=== PATIENT | male | born 2000 | race Caucasian/White ===

== ENCOUNTER 2023-05-02 16:37 | Emergency (ER) | payer SELFPAY ==
--- NOTE | ~2023-05-02 | CT_ITS ---
EXAMINATION: CT abdomen pelvis w con DATE: 05/02/2023 20:07 INDICATION: right lower quadrant pain, possible hernia TECHNIQUE: Computed tomography (CT) of the abdomen and pelvis was performed with 100 mL Omnipaque-350 intravenous contrast. Automated exposure control and iterative reconstruction technique were employe d. The dose-length product was 452.77 mGy-cm. COMPARISON: None. FINDINGS: Lower thorax: Unremarkable Liver: Normal. Biliary/Gallbladder: Gallbladder is normal. No bile duct dilation. Pancreas: No mass or duct dilation. Spleen: Normal. Adrenals:No mass. Kidneys: No suspicious mass, obstructing stone, or hydronephrosis. GI tract: No small or large bowel dilation. Normal appendix. Mesentery/Peritoneum: No ascites, mass, or free air. Retroperitoneum: No mass. Pelvis: Pelvic organs are within normal limits. Soft Tissues: Soft tissues and body wall unremarkable. Bones: No acute osseous finding. IMPRESSION: No acute abdominopelvic process detected Reviewed, dictated and finalized at location K. COLLECTOR
[2023-05-02 16:42] VITALS: BP 171/89; PULSE 130; RESP 16; TEMP 36.5; O2SAT 100
[2023-05-02 19:39] LABS: Basophils Absolute Auto 0.1 K/mm3 (0.0-0.1); Basophils Percent Auto 0.4 % (0.2-1.2); Eosinophils Absolute Auto 0.3 K/mm3 (0-0.3); Eosinophils Percent Auto 2.3 % (0-4.4); Hemoglobin 15.5 g/dL (14.0-18.0); Immature Granulocyte Absolute 0.14 K/mm3 (0.00-0.031); Lymphocytes Absolute Auto 3.08 K/mm3 (0.9-3.2); Lymphocytes Percent Auto 22.1 % (18.3-44.2); Mean Corpuscular Hemoglobin 28.3 pg (26-34); Mean Corpuscular Volume 85.9 fl (80-100); Mean Platelet Volume 9.6 fl (7.4-10.4); Monocytes Absolute Auto 0.7 K/mm3 (0.1-0.6); Monocytes Percent Auto 5.3 % (2.6-8.5); Neutrophils Absolute Auto 9.6 K/mm3 (1.3-6.7); Neutrophils Percent Auto 68.9 % (45.5-73.1); Platelet Count Result 254 k/mm3 (150-375); Red Blood Count 5.47 M/mm3 (4.6-6.20); Red Cell Distribution Width 12.1 % (11.5-14.5)
[2023-05-02 19:49] LABS: Alanine Aminotransferase 19 U/L (6-50); Albumin Level 5.2 g/dL (3.5-5.1); Alkaline Phosphatase 72 U/L (38-126); Anion Gap 11 mmol/L (8-16); Aspartate Amino Transferase 30 U/L (17-59); Bilirubin,Total 0.7 mg/dL (0.2-1.3); Blood Urea Nitrogen 9 mg/dL (9-20); Calcium 10.1 mg/dL (8.4-10.2); Carbon Dioxide 28 mmol/L (22-30); Chloride 102 mmol/L (98-107); Estimated CRCL calculation 141 ml/min; Estimated Glomerular Filt Rate > 60; Glucose 119 mg/dL (65-110); Lipase 60 U/L (23-300); Potassium 3.2 mmol/L (3.4-5.0); Sodium 141 mmol/L (137-145)
[2023-05-02 20:18] LABS: Appearance Urine Clear (Clear); Bilirubin Urine Negative (Negative); Blood Urine Negative (Negative); Color Urine Yellow (Yellow); Glucose Urine UA Negative (Negative); Ketones Urine Negative (Negative); Leukocyte Esterase Ur Negative LEU/UL (Negative); Nitrate Urine Negative (Negative); Protein Urine Negative (Negative); Specific Grav Ur 1.018 (1.001-1.035); Urobilinogen Urine 0.2 mg/dL (<2.0)
[2023-05-02 20:24] LABS: Add Urine Microscopic? NO
--- NOTE | 2023-05-02 20:33 | ED.ABDPAIN ---
HPI - Abdominal Pain General Chief Complaint: Abdominal Pain Stated Complaint: bubble in my belly Time Seen by Provider: 05/02/23 19:13 History of Present Illness HPI narrative: patient 19-year-old gentleman who presents to emergency department with chief complaint of right lower quadrant bulging. The patient reports that he has been moving things around and lifting a lot of things notice that he has a bulging in his abdomen wall whenever he does specific activities. Patient reports that he has not had a non reducible mass reports that not had any specific trauma reports that currently he is not hurting when he is at rest. Related Data Allergies Allergy/AdvReac Type Severity Reaction Status Date / Time No Known Allergies Allergy Verified 05/02/23 19:16 Review of Systems Review of Systems: A 10 system review of systems was completed on the patient and is negative except for what is stated in the HPI. Nursing and ancillary documentation was reviewed. Exam Narrative: GENERAL: Well-appearing, well-nourished, and in no acute distress. HEAD: Normocephalic, atraumatic. EYES: PERRLA and EOMI. ENT: Nares clear, no rhinorrhea or epistaxis. Mucous membranes moist. NECK: Supple. CHEST: Clear to auscultation. No respiratory distress. HEART: Regular rate and rhythm. No murmur heard. Normal peripheral pulses. ABDOMEN: Soft, nontender, nondistended, normal active bowel sounds. EXTREMITIES: Normal range of motion. No edema. SKIN: Warm, dry, no rash. NEURO: No focal deficits. Alert and oriented x3. PSYCH: Normal mood and affect. Course Vital Signs Vital signs: Vital Signs Temperature 36.5 C 05/02/23 16:42 Pulse Rate 130 H 05/02/23 16:42 Respiratory Rate 16 05/02/23 16:42 Blood Pressure 171/89 H 05/02/23 16:42 Pulse Oximetry 100 05/02/23 16:42 Oxygen Delivery Room Air 05/02/23 16:42 Temperature 36.5 C 05/02/23 16:42 Pulse Rate 130 H 05/02/23 16:42 Respiratory Rate 16 05/02/23 16:42 Blood Pressure 171/89 H 05/02/23 16:42 Pulse Oximetry 100 05/02/23 16:42 Oxygen Delivery Room Air 05/02/23 16:42 MDM - Abdominal Pain MDM Narrative Medical decision making narrative: Differential diagnosis includes I bowel obstruction, incarcerated hernia, hernia, appendicitis, diverticulitis Lab Data 05/02/23 19:32 05/02/23 19:32 Labs: Lab Results 05/02/23 05/02/23 Range/Units 19:32 20:10 WBC 14.0 H (4.5-10.0) K/mm3 RBC 5.47 (4.6-6.20) M/mm3 Hgb 15.5 (14.0-18.0) g/dL Hct 47.0 (42.0-52.0) % MCV 85.9 (80-100) fl MCH 28.3 (26-34) pg MCHC 33.0 (32-36) g/dl RDW 12.1 (11.5-14.5) % Plt Count 254 (150-375) k/mm3 MPV 9.6 (7.4-10.4) fl Immature Gran % (Auto) 1.0 H (0-0.5) % Neut % (Auto) 68.9 (45.5-73.1) % Lymph % (Auto) 22.1 (18.3-44.2) % [place] % (Auto) 5.3 (2.6-8.5) % Eos % (Auto) 2.3 (0-4.4) % Baso % (Auto) 0.4 (0.2-1.2) % Lymph # (Auto) 3.08 (0.9-3.2) K/mm3 [place] # (Auto) 0.7 H (0.1-0.6) K/mm3 Eos # (Auto) 0.3 (0-0.3) K/mm3 Baso # (Auto) 0.1 (0.0-0.1) K/mm3 Abs Immat Gran (auto) 0.14 H (0.00-0.031) K/mm3 Absolute Neuts (auto) 9.6 H (1.3-6.7) K/mm3 Absolute Nucleated RBC 0.0 (0.0-0.012) K/mm3 Nucleated RBC % 0.0 (0.0-0.2) % Sodium 141 (137-145) mmol/L Potassium 3.2 L (3.4-5.0) mmol/L Chloride 102 (98-107) mmol/L Carbon Dioxide 28 (22-30) mmol/L Anion Gap 11 (8-16) mmol/L BUN 9 (9-20) mg/dL Creatinine 0.70 (0.7-1.3) mg/dL Estim Creat Clear Calc 141 ml/min Estimated GFR > 60 (59 - ) Glucose 119 H (65-110) mg/dL Calcium 10.1 (8.4-10.2) mg/dL Total Bilirubin 0.7 (0.2-1.3) mg/dL AST 30 (17-59) U/L ALT 19 (6-50) U/L Alkaline Phosphatase 72 (38-126) U/L Total Protein 9.0 H (6.3-8.2) g/dL Albumin 5.2 H (3.5-5.1) g/dL Lipase 60 (23-300) U/L Urine Color Yellow (Yellow) Urine Appearan
[2023-05-02 21:03] VITALS: BP 126/84; PULSE 88; RESP 15; O2SAT 99
== END 2023-05-02 21:05 | disposition home or self-care (01) ==
PROVIDERS: Emergency Provider Emergency Medicine
DX: R10.31 Right lower quadrant pain (principal)
CPT/HCPCS: 36415; 74177; 80053; 81003; 83690; 85025; 99284; Q9967

== ENCOUNTER 2023-06-11 00:41 | Day surgery (SDC) | payer OTHER, SELFPAY ==
[2023-05-29 13:22] VITALS: BMI 27.3
--- NOTE | 2023-05-29 13:57 | PC.NURSE ---
Report to the Outpatient Waiting Room, entrance under the green pavilion located off [facility], at time _0600__ on date _07/01/23 . Planned Procedure Time: __0730 . Time changes happen often and if your time is changed the preop area will call you the afternoon before. - You and your visitor will be asked to self-screen and do not enter if you have any COVID symptoms. - A mask is optional within the hospital at this time. Patients may have clear liquids (water, carbonated beverages, clear teas, apple juice) until 3 hours prior to surgery with a maximum of 20 ounces. - No food from midnight until time of surgery. Take the following medications with a SIP of water the morning of surgery: ___SERTRALINE DO NOT STOP ANY OF YOUR OTHER PRESCRIPTION MEDICATIONS PRIOR TO SURGERY ?EXCEPT THE FOLLOWING Medications to discontinue per physician NONE Date to take last dose___N/A Please no make-up, nail belgian, hairspray, perfume, deodorant, or body powder the day of surgery. No jewelry (including any body piercings) or valuables the day of surgery, leave them at home. Please take a shower or bath the night before, or the morning of, surgery with an antibacterial soap. Wear comfortable, loose fitting clothing. - Jewelry must be removed prior to entering the operating room. Rings and piercings that are not removed may be cut off. - The hospital will not accept responsibility for valuables. - Please leave all valuables, including medications, at home the day of surgery. If you are going home after surgery, a licensed tow car driver must drive you home. - NO public transportation without another adult if you receive anesthesia. - We recommend that an adult stay with you for 24 hours following discharge. - We also recommend that you do not drive, make important decision, drink alcoholic beverages, or take any drugs that were not prescribed by your health care provider for at least 24 hours after your discharge time. Follow any additional instructions given to you from your surgeon. If you or anyone in your household have experienced Covid symptoms in the past week, please notify your surgeon or the nurse liaison at the phone number below for possible testing. Telephone instructions given to _ISAUSTINVIVIAN__and asked if any additional questions and then verbalized understanding. Patient advised to call surgeon office or pre surgery nurse liaison [phone] if any additional questions.
[2023-06-11] VITALS (9 sets, daily range): BP systolic 118–162; BP diastolic 70–94; PULSE 61–108; RESP 12–20; TEMP 36.2–36.4; O2SAT 95–100
[2023-06-11] MEDS: LACTATED RINGERS 1,000 ML 30 ML IV CONT ×2 (06:25→08:50)
[2023-06-11] MEDS: KETOROLAC 15 MG/ML VIAL (*BKC) IV PUSH (06:30)
[2023-06-11] MEDS: ACETAMINOPHEN 500 MG TABLET 1000 MG PO (06:30)
--- NOTE | 2023-06-11 07:05 | P.PNAN_ITS ---
Anes - Initial Pre Proc Eval Procedure: Operation Date: 06/11/23 07:30 Proposed Procedures p Robotic Assisted Right Inguinal Hernia Repair with Mesh - Renate Noriega MD Date/Time: 06/11/23 07:05 Surgeon: Renate Noriega MD Pre Op Diagnosis: right Inguinal Hernia Patient Data Age: 22 Gender: M Height: 1.75 m Weight: 85.4 kg Last Vital Signs Temp 97.2 F L 06/11/23 06:03 Pulse 108 H 06/11/23 06:03 Resp 18 06/11/23 06:03 BP 162/94 H 06/11/23 06:03 Pulse Ox 100 06/11/23 06:03 O2 Del Method Room Air 06/11/23 06:03 Allergies Allergy/AdvReac Type Severity Reaction Status Date / Time No Known Allergies Allergy Verified 06/11/23 06:04 Home Medications Medication Instructions Recorded Confirmed Type sertraline 25 mg tablet 25 mg PO DAILY 05/29/23 06/11/23 History Laboratory Tests 06/11/23 06:26 Blood Type Pending Antibody Screen Pending Patient hx anesthesia problems: none Family hx anesthesia problems: none Results Review: All pre-operative results and documents have been reviewed as part of the pre- operative evaluation. [facility] Past Medical History Medical History (Updated 05/11/23 @ 14:44 by JOSÉ MIGUEL Rodriguez) Asthma Hypertension Family History Family History Mother Hypertension Other Cancer Social History Social History (Updated 05/09/23 @ 15:59 by Silvana Navarro MA) Years smoked: 6 Smoking status: Current some day smoker Tobacco type: e-cigarettes/vaping Alcohol intake: never Alcohol use details: socially Substance use: never Substance use type: does not use Living arrangements: with family Occupation/Education: occupation Spiritual care concerns: No Anes - Eval Final PreProcedure Day of Procedure 06/11/23 07:05 Patient weight: normal Heart: regular rate and rhythm Lungs: clear to auscultation Airway: Mallampati scale class II Neurological: alert and oriented Last oral intake: >/= 8 hours ASA classification: II Emergent: no Anesthetic plan: proceed Anesthesia type and monitoring: general ETT and standard monitoring Results Review: All pre-operative results and documents have been reviewed as part of the pre- operative evaluation. Informed Consent: The patient's anesthetic plan and its attendant risks and benefits were discussed with the patient/family/POA. Questions were solicited and answers provided to the satisfaction of the patient/family/POA.
--- NOTE | 2023-06-11 07:24 | WPDHPUPDATE1 ---
History and Physical Update Update Date/Time: 06/11/23 07:24 History and Physical has been reviewed, including an updated exam of the patient. There are NO changes in the patient's condition. Risks, benefits, and alternatives have been discussed and questions answered. Patient agrees to proceed with procedure.
--- NOTE | 2023-06-11 07:24 | PM.IMHP ---
H&P: HPI History of Present Illness Date/Time: 06/11/23 07:24 Chief Complaint: right inguinal hernia Narrative: Lavell is a 22 y/o male who presents to the office for bulge in his RLQ.He reports that he has been moving things around and some are heavy. He denies a bulge in his RLQ prior to this. He reports burning sensations with bowel movements and urination Abdominal pain in RLQ with activity. He was seen in [facility] on 05/02 and workup c/w [facility]. Review of Systems Review of Systems: All systems reviewed & are unremarkable except as noted in HPI and below PMFSH Past Medical History Medical History Asthma Hypertension Family History Family History Mother Hypertension Other Cancer Social History Social History Years smoked: 6 Smoking status: Current some day smoker Tobacco type: e-cigarettes/vaping Alcohol intake: never Alcohol use details: socially Substance use: never Substance use type: does not use Living arrangements: with family Occupation/Education: occupation Spiritual care concerns: No Meds Home Medications and Allergies Home Medications Medication Instructions Recorded Confirmed Type sertraline 25 mg tablet 25 mg PO DAILY 05/29/23 06/11/23 History Allergies Allergy/AdvReac Type Severity Reaction Status Date / Time No Known Allergies Allergy Verified 06/11/23 06:04 Vital Signs Vital Signs - 24 hr 06/11/23 06:03 Temperature 36.2 C L Pulse Rate 108 H Respiratory Rate 18 Blood Pressure 162/94 H Pulse Oximetry 100 Oxygen Delivery Room Air Exam Const: General: cooperative, healthy appearing, comfortable and no acute distress Resp: Auscultation: clear to auscultation bilaterally Cardio: Rate: regular rate Rhythm: regular rhythm GI: Inspection: normal to inspection GI Palp: Yes abdominal tenderness, Yes Soft to palpation, Yes Tenderness to palpation present (GI) and Yes Hernia present Other: reducible [facility] Assessment and Plan Assessment and plan (1) Right inguinal hernia: Code(s): K40.90 - Unilateral inguinal hernia, without obstruction or gangrene, not specified as recurrent Status: Acute Assessment and Plan: will setup for robotic assisted repair c mesh
[2023-06-11] MEDS: ceFAZolin 2 GM/D5W 50 ML 2 GM/50 ML BAG IVPB (07:32)
[2023-06-11] MEDS: BUPIVACAINE/EPINEPHRINE 0.5% 30 ML VIAL INFILTRATE (08:01)
--- NOTE | 2023-06-11 08:49 | P.OP_ITS ---
Procedure Note - Detailed Date of Procedure 06/11/23 Pre-op Diagnosis Right inguinal hernia Post-op Diagnosis Same Procedure Performed robotic assisted right inguinal hernia repair with mesh Surgeon Renate Noriega MD Anesthesia General Indications 22-year-old male with progressively worsening right inguinal hernia over the last few months Findings indirect right inguinal hernia Description of Procedure Patient was brought into the operating room and placed in the supine position. After adequate induction of general anesthesia, the patient was prepped and draped in normal sterile fashion. A time-out was then done to verify the patient's identity, as well as the procedure being performed. Began by making a 8 mm incision in the supraumbilical region, a Veress needle was then placed into the peritoneal cavity. CO2 gas was then insufflated and after adequate pneumoperitoneum was achieved, the Veress needle was removed. I then placed an 8 mm trocar through this incision. I then placed the endoscope through this trocar site and under direct visualization placed 2 further 8 mm ports in the right and left mid abdomen. The [employer] robot was then docked to the 3 trocar sites. I then scrubbed out and went to the robotic console. Upon examining the pelvis, it was noted that the patient had a moderate right inguinal hernia. The left side was examined and no hernia defect was noted. I began by making a preperitoneal flap approximately 6 cm superior to the defect. This flap was carried medially past the umbilical ligaments in laterally to the transversalis. It then began dissection of my medial compartment taking this down to the pubic tubercle. I then began the lateral dissection taking this down to the transversalis fascia. Once these compartments were achieved, I began dissection around the cord structures. A moderate sized indirect hernia was noted at this point. Using careful dissection, was able to reduce indirect hernia sac off the cord structures. Once this was adequately done, I went ahead and placed a large piece of 3D Max mesh into the abdominal cavity. The mesh was carefully positioned, centering the center of the mesh over the indirect defect. Once this was done, was very satisfied with our repair. Using 3-0 Vicryl sutures, I tacked the mesh medially to Javan's ligament. Two lateral sutures were placed from the mesh to the transversalis fascia. I then closed the peritoneal flap with a running 2.0 V Lock suture. The abdomen was then desufflated, and all ports were removed. All incisions were then closed with the 4.0 monocryl suture. Dermabond was placed on each wound. The patient tolerated the procedure well, was extubated in the operating room postoperatively, and will now be transferred to the recovery room in stable condition. Implants large 3DMax mesh Estimated Blood Loss 10 Drains No Packing No Pathology None sent Complications No immediate complications Condition Stable Disposition PACU [facility] Billing Surgery - Charge Forward: Surgery Billing
[2023-06-11] MEDS: fentaNYL CITRATE INJ (*CRX) 100 MCG/2 ML VIAL 25 MCG IV PUSH ×8 (09:06→09:31)
[2023-06-11] MEDS: oxyCODONE HCL (*CRX) 5 MG TAB IR PO (10:05)
== END 2023-06-11 10:45 | disposition home or self-care (01) ==
PROVIDERS: PCP Emergency Medicine; Visit Provider Surgery
PROC: 8E0Y4CZ Robotic Assisted Procedure of Lower Extremity, Percutaneous Endoscopic Approach (ICD-10-PCS; CPT 49650; principal; 2023-06-11 07:30)
DX: K40.90 Unilateral inguinal hernia, without obstruction or gangrene, not specified as recurrent (principal); I10 Essential (primary) hypertension; J45.909 Unspecified asthma, uncomplicated; F17.290 Nicotine dependence, other tobacco product, uncomplicated; Z80.9 Family history of malignant neoplasm, unspecified
CPT/HCPCS: 49650; S2900; 36415; 86850; 86900; 86901; A9270; C1781; J0690; J1100; J1885; J2250; J2405; J2704; J3010; J7030; J7120